=== PATIENT | male | born 1960 | race Caucasian/White ===

== ENCOUNTER 2017-10-02 05:56 | Inpatient (IN) | payer OTHER ==
[2017-10-02] VITALS (33 sets, daily range): BP systolic 53–159; BP diastolic 26–122
[~2017-10-02] VITALS: Ht 175.3 cm; Wt 130.9 kg
[2017-10-02] MEDS ORDERED: DILTIAZEM HCL 5 MG/ML 5 ML VIAL IV STA (06:13)
[2017-10-02] MEDS ORDERED: SODIUM CHLORIDE 0.9% 1000ML 1,000 ML IV ONE (06:15)
[2017-10-02] MEDS ORDERED: ASPIRIN 325 MG TAB PO ONE (06:15)
[2017-10-02] MEDS ORDERED: METOPROLOL TARTRATE INJ 1 MG/ML VIAL IV ONE ×6 (06:30→16:00)
[2017-10-02] MEDS ORDERED: ENOXAPARIN SODIUM INJ 100 MG/ML SYR SC SCH (06:45)
[2017-10-02] MEDS ORDERED: SODIUM CHLORIDE FLUSH 10 ML SYR INJ PRN (06:45)
[2017-10-02] MEDS ORDERED: ENOXAPARIN SODIUM INJ 100 MG/ML SYR SC STA (06:47)
[2017-10-02] MEDS: CEFTRIAXONE SOD 1 GM VIAL IV SCH (07:19)
[2017-10-02] MEDS ORDERED: ASPIRIN 325 MG TAB EC PO SCH (09:00)
[2017-10-02] MEDS ORDERED: SODIUM CHLORIDE 0.9% 250ML 250 ML ONE (11:05)
[2017-10-02] MEDS: LEVOFLOXACIN 750MG/D5W 150ML 150 ML IV SCH (11:25)
[2017-10-02] MEDS: METOPROLOL TARTRATE INJ 1 MG/ML VIAL IV PRN ×2 (11:25→19:24)
[2017-10-02] MEDS ORDERED: METOPROLOL TARTRATE 25 MG TAB PO SCH (13:15)
--- NOTE | 2017-10-02 14:35 | Consultation ---
DATE OF CONSULTATION: October 02, 2017 CARDIOLOGY CONSULTATION REQUESTING PHYSICIAN: Dr. Jose F Guardado. REASON FOR CONSULTATION: Atrial fibrillation with rapid ventricular response. HISTORY OF PRESENT ILLNESS: This is a 57-year-old man without significant past medical history, who presented with complaints of right-sided abdominal pain. The patient reports he was in his usual state of health until a few days prior when he developed what he described as a cold. Yesterday afternoon he developed a right-sided abdominal pain right underneath his rib cage. He did not think anything of this and proceeded to run some errands. However, this pain worsened yesterday evening such that it was 9 to 10 out of 10 in severity. He noted the pain was worse with cough, deep inspiration and lying down. The pain was associated with shortness of breath but no nausea or diaphoresis. Given worsening of the pain, he presented to the ER for further evaluation. On arrival to the ER, he was noted to have atrial fibrillation with rapid ventricular response, and chest x-ray demonstrated a medium-sized well-defined infiltrate in the right lower lobe and a small patchy infiltrate in the left lower lobe consistent with pneumonia and a leukocytosis at 15.2. He was, therefore, admitted to [facility] for further care. REVIEW OF SYSTEMS: Negative except as per HPI. PAST MEDICAL HISTORY: Obesity. PAST SURGICAL HISTORY: Phimosis. ALLERGIES: NO KNOWN DRUG ALLERGIES. MEDICATIONS: None. SOCIAL HISTORY: He smokes a pack a day since the age of 12. Occasional alcohol. No illicit drugs. FAMILY HISTORY: Pertinent for father with heart disease. PHYSICAL EXAMINATION VITAL SIGNS: Temperature 96.5 degrees, pulse 156, respiratory rate 22, blood pressure 105/66, oxygen saturation 97% on nasal cannula. GENERAL: Obese gentleman in no acute distress, well developed, well nourished. HEENT: Normocephalic, atraumatic. Pupils equal, no scleral icterus. NECK: Supple. No thyromegaly or cervical lymphadenopathy, no carotid bruits. LUNGS: Decreased breath sounds, scattered wheezes, no crackles. CARDIOVASCULAR: Tachycardic, irregularly irregular. No murmur. Normal S1 and S2. ABDOMEN: Soft, nontender. EXTREMITIES: 1+ pitting edema. Lymphedema is also present. EKG: Atrial fibrillation with rapid ventricular response. LABS: Sodium 135, potassium 4.2, chloride 99, CO2 27, BUN 14, creatinine 1. D-dimer 970. Troponin less than 0.05. WBC 15.2, hemoglobin 18.2, hematocrit 29.9, platelets 152. IMPRESSION 1. Pneumonia. 2. Atrial fibrillation with rapid ventricular response. 3. Obesity. 4. Right-sided abdominal pain, likely pleuritic in etiology. RECOMMENDATIONS: Start scheduled metoprolol tartrate for rate control. Continue IV metoprolol as necessary. Agree with anticoagulation with Lovenox. Antibiotics per primary service. Obtain TSH and echocardiogram. Thank you for this consult. We will continue to follow. Job#: [id number] EV
[2017-10-02] MEDS ORDERED: IOPAMIDOL 370 MG/ML 200 ML INFUS..BTL INJ ONE (14:48)
[2017-10-02] MEDS ORDERED: SODIUM CHLORIDE 0.9% 50ML 50 ML ONE (14:48)
[2017-10-02 14:58] LABS: CREATINE KINASE 85 IU/L (30-200)
--- NOTE | 2017-10-02 15:39 | Diagnostic Imaging Report ---
PROCEDURE: CT scan of the chest WITH intravenous contrast, using pulmonary angiogram protocol. TECHNIQUE: The chest was scanned utilizing a multidetector helical scanner from the lung apex through the level of the adrenal glands after the IV administration of 85 cc of Isovue 370. Coronal and sagittal multiplanar reformations were obtained. COMPARISON: None. INDICATIONS: ATRIAL FIBRILLATION, SHORTNESS OF BREATH FINDINGS: Lines/tubes: None. Lungs and Airways: Good contrast bolus. Large pulmonary embolus in the right lower lobe pulmonary artery. Involvement of the lateral branch of the right middle lobe pulmonary artery. (Series 2 image 57) Small emboli in the posterior branch of the left upper lobe pulmonary artery. (Series 2 image 39) Questionable other eccentric filling defects in the left lower lobe. Mild paraseptal emphysematous changes with upper lobe predominance. Diffuse groundglass opacities involving the right lower lobe. A few scattered areas of groundglass opacities in the right middle and left upper lobe. Left lower lobe atelectasis and possible aspiration/pneumonia. Calcified granuloma in the right middle lobe (series 3 image 64). Calcified granuloma in the left lower lobe (series 3 image 67). Pleura: Small right pleural effusion. Heart and mediastinum: The thyroid gland is normal. No significant mediastinal, hilar or axillary lymphadenopathy is seen. 0.8 cm subcarinal lymph node. 0.8 cm prevascular lymph node. The heart and pericardium are within normal limits. Main pulmonary artery is 2.4 cm. Ascending aorta measures 3.7 cm. Mild atherosclerotic calcifications in the aorta. Soft tissues: Normal. Abdomen: Limited contrast-enhanced views of the upper abdomen show no abnormality within the visualized liver, spleen, pancreas, or kidneys. The adrenal glands are normal. Nonspecific perinephric fat stranding bilateral kidneys. 3.1 cm cystic lesion in the superior pole of the left kidney. Bones: The visualized bony thorax is within normal limits. IMPRESSION: 1. Pulmonary embolus in bilateral lungs with large burden in the right lower lobe artery. 2. Diffuse groundglass opacities in the right lower lobe is likely related to hemorrhage/pulmonary infarct from pulmonary emboli. 3. Scattered mild nonspecific groundglass opacities in bilateral lungs. These may be infectious versus related to smaller non-visualized pulmonary emboli. Results were communicated with a patient's nurse and Dr. Kohler by Dr. Chow on 10/02/2017 at 3:37 PM. Dictated by: Alexander Chow M.D. on 10/02/2017 at 15:41 Electronically approved by: Alexander Chow M.D. on 10/02/2017 at 15:41
[2017-10-02] MEDS ORDERED: WARFARIN SOD 5 MG TAB PO SCH (17:00)
[2017-10-02 17:10] LABS: HEMATOCRIT 49.7 % (38.2-49.6); HEMOGLOBIN 16.6 g/dL (14.0-18.0)
[2017-10-02 17:12] LABS: INR 1.28
[2017-10-02 17:18] LABS: CHOL/HDL RATIO 3.6 (3.9-4.7)
[2017-10-02] MEDS: METOPROLOL TARTRATE 25 MG TAB PO SCH (17:49)
--- NOTE | 2017-10-02 17:56 | History and Physical ---
PRIMARY CARE PHYSICIAN: . CHIEF COMPLAINT: Right upper quadrant/right lower chest discomfort and severe shortness of breath. 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 Thereafter, he had seafood with oysters and froglegs, had several beers, and he returned to the ship. As he entered into bed, he had immediately jumped out of bed because of severe right upper quadrant/right lower chest discomfort. He denies any leg pain. He also started having shortness of breath, which has worsened. Denies any chest pain. Denies any history of venous thromboembolism. He does smoke 1 pack of cigarettes per day. He was taken to the urgent care facility at [facility], found to be in atrial fibrillation with rapid ventricular response, and was sent here to the ICU at [facility]. The CTA done here showed a pulmonary embolism in bilateral lungs with large burden in right lower lobe artery, also ground-glass opacities seen. Patient admitted for further evaluation and management. Currently sitting in chair, unable to lie in bed. He has oxygen in place. PAST MEDICAL HISTORY: Cigarette abuse. Chronic leg edema. PAST SURGICAL HISTORY: Phimosis surgery as a 7-year-old boy. ALLERGIES: PER THE ELECTRONIC MEDICAL RECORDS. FAMILY HISTORY: No history of venous thromboembolism. SOCIAL HISTORY: Patient works as a captain on a ship. He smokes 1 pack of cigarettes per day. Occasional alcohol. No illicits. MEDICATIONS: Per the electronic medical records. Medications reviewed. REVIEW OF SYSTEMS: Denies any dizziness or chest pain. VITAL SIGNS: Have been reviewed. PHYSICAL EXAMINATION GENERAL APPEARANCE: A tired-appearing man resting in chair with nasal cannula in place. HEENT: Anicteric. CARDIOVASCULAR: Normal S1/S2. LUNGS: He has reduced breath sounds, mildly coarse. He has more reduced breath sounds at the bases. ABDOMEN: Soft, nondistended. He has tenderness in the right upper quadrant/right lower rib region. EXTREMITIES: He has 1+ leg edema bilaterally. Calf exam is deferred. SKIN: Dry. PSYCHIATRIC: Normal affect. NEUROLOGICALLY: Alert and oriented x3. Moving all extremities. LABS: Reviewed. ASSESSMENT AND PLAN: This is a 57-year-old man. 1. Atrial fibrillation with rapid ventricular response. Start on anticoagulation. Will control his rate. Obtain a 2-D echocardiogram. Obtain TSH. Obtain lipid panel. 2. Pulmonary embolism in the bilateral lungs, large burden in the right lower lobe artery. Continue anticoagulation. Pulmonary consultation has been placed. I have encouraged the patient to quit all cigarette use. 3. Cigarette abuse. Quit cigarettes now. Will start nicotine patch. 4. Ground-glass opacities in the right lower lobe. Could be related to the pulmonary emboli versus a pulmonary infarct. We will defer to pulmonary services. 5. Leukocytosis. Could be related to marginalization in the setting of acute pulmonary emboli. Will treat him empirically with antibiotics in the meantime for coverage. 6. Obesity. BMI is 37.5. Will obtain hemoglobin A1c and screen for diabetes. Obtain lipid panel. 7. Prophylaxis. Will use Pepcid b.i.d. while he is on anticoagulation. 8. Disposition. Will reduce aspirin to 81 mg daily. Cardiac enzymes are negative. 9. Critical care time. More than 35 minutes. Job#: [id number] EV
[2017-10-02] MEDS ORDERED: WARFARIN SOD 2.5 MG TAB PO SCH (18:00)
[2017-10-02] MEDS ORDERED: DIGOXIN INJ 0.25 MG/ML 2 ML AMP ONE (19:37)
[2017-10-02] MEDS ORDERED: DIGOXIN INJ 0.25 MG/ML 2 ML AMP IV NR (20:00)
[2017-10-02] MEDS: ENOXAPARIN SODIUM INJ 100 MG/ML SYR SC SCH (20:28)
[2017-10-02] MEDS: ACETAMINOPHEN 325 MG TAB PO PRN (20:28)
[2017-10-02 22:47] LABS: CREATINE KINASE 82 IU/L (30-200)
[2017-10-03] VITALS (43 sets, daily range): BP systolic 87–131; BP diastolic 46–96
[2017-10-03] MEDS: METOPROLOL TARTRATE 25 MG TAB PO SCH ×4 (00:26→18:07)
[2017-10-03] MEDS ORDERED: DIGOXIN INJ 0.25 MG/ML 2 ML AMP IV NR (02:00)
[2017-10-03] MEDS: CEFTRIAXONE SOD 1 GM VIAL IV SCH (05:26)
[2017-10-03] MEDS: ACETAMINOPHEN 325 MG TAB PO PRN (05:27)
[2017-10-03 06:40] LABS: BASOPHILS % 0.2 % (0.0-1.0); EOSINOPHILS # (AUTO) 0.1 (0.0-0.4); EOSINOPHILS % 0.6 % (0.0-6.0); HEMATOCRIT 48.4 % (38.2-49.6); HEMOGLOBIN 16.1 g/dL (14.0-18.0); LYMPHOCYTES # (AUTO) 1.4 (1.0-3.2); LYMPHOCYTES % 8.1 % (18.0-39.1); MEAN CORPUSCULAR HGB CONC 33.3 g/dL (31-35); MEAN CORPUSCULAR VOLUME 90.1 fL (81-99); MONOCYTES # (AUTO) 1.8 (0.2-0.8); MONOCYTES % 10.7 % (4.4-11.3); NEUTROPHILS # (AUTO) 13.2 (2.1-6.9); NEUTROPHILS % 79.7 % (38.7-80.0); PLATELET COUNT 178 x10e3/uL (140-360); RED BLOOD COUNT 5.37 x10e6/uL (4.3-5.7); RED CELL DISTRIBUTION WIDTH 14.1 % (11.7-14.4)
[2017-10-03 06:56] LABS: INR 1.3; PROTHROMBIN TIME 15.2 seconds (11.9-14.5)
[2017-10-03 06:59] LABS: ANION GAP 14.1 mmol/L (8-16); BLOOD UREA NITROGEN 12 mg/dL (7-26); BUN/CREATININE RATIO 16 (6-25); CARBON DIOXIDE 23 mmol/L (22-29); CHLORIDE 97 mmol/L (98-107); CREATININE, SERUM 0.74 mg/dL (0.72-1.25); EST GLOMERULAR FILTRATION RATE > 60 ML/MIN (60-); GLUCOSE 130 mg/dL (74-118); POTASSIUM 4.1 mmol/L (3.5-5.1); SODIUM 130 mmol/L (136-145)
[2017-10-03] MEDS ORDERED: ASPIRIN 325 MG TAB EC PO SCH (09:00)
[2017-10-03] MEDS: NICOTINE 21 MG/EA PATCH TOP SCH (09:00)
[2017-10-03] MEDS: ENOXAPARIN SODIUM INJ 100 MG/ML SYR SC SCH ×2 (09:03→20:24)
[2017-10-03] MEDS: ASPIRIN 81 MG CHEW TAB PO SCH (09:03)
[2017-10-03 11:13] LABS: ANISOCYTOSIS SLIGHT; LYMPHOCYTES % (MANUAL) 7 % (19-48); MONOCYTES % (MANUAL) 13 % (3.4-9.0); NEUTROPHILS % (MANUAL) 80 % (40-74); PLATELET ESTIMATE ADEQUATE; PLATELET MORPHOLOGY COMMENT NORMAL; RBC MORPHOLOGY COMMENT NORMAL
[2017-10-03] MEDS: LEVOFLOXACIN 750MG/D5W 150ML 150 ML IV SCH (11:51)
--- NOTE | 2017-10-03 14:08 | Progress Note ---
DATE: October 03, 2017 CARDIOLOGY PROGRESS NOTE SUBJECTIVE: Patient denies shortness of breath. He continues to have right-sided chest pain. Extensive discussion was held with the patient regarding anticoagulation for the patient's newly diagnosed pulmonary emboli. Discussion included vitamin K antagonist such as Coumadin or warfarin and the need for consistent diet and frequent INR checks as well as novel oral anticoagulants which are not reversible. Extensive discussion was held with the patient regarding vitamin K antagonist and novel anticoagulants. 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 He indicates that he does not believe that he would have any problems obtaining the novel oral anticoagulation. He understands that these do not have reversal agents readily available. OBJECTIVE VITALS: Temperature 97.7 degrees, pulse 129, respiratory rate 20, blood pressure 106/70, oxygen saturation 96% on 3 L nasal cannula. GENERAL: Obese gentleman in no acute distress, awake and alert. LUNGS: Decreased breath sounds at the bases. No wheezes or crackles. CARDIOVASCULAR: Tachycardic, irregularly irregular. Normal S1 and S2. No murmur. ABDOMEN: Soft. EXTREMITIES: There is 1+ pitting edema. Lymphedema is noted. CARDIAC MEDICATIONS 1. Metoprolol tartrate 25 mg p.o. q.6 h. 2. Aspirin 81 mg p.o. daily. 3. Enoxaparin 100 mg p.o. subcutaneous q.24 h. 4. Warfarin 7.5 mg p.o. daily. LABS: WBC 16.59, hemoglobin 16.1, hematocrit 48.4, platelets 178. Sodium 130, potassium 4.1, chloride 97, CO2 23, BUN 12, creatinine 0.74. Troponin less than 0.001. Cholesterol 105, LDL 60, HDL 35, triglycerides 52. CT of the chest: Pulmonary embolus in bilateral lungs with large burden in the right lower lobe artery. Diffuse ground-glass opacities in the right lower lobe are likely related to hemorrhage/pulmonary infarct from pulmonary emboli. Scattered mild nonspecific ground-glass opacities in bilateral lungs. These may be infectious versus related to smaller, nonvisualized, pulmonary emboli. TELEMETRY: Atrial fibrillation with rapid ventricular response. IMPRESSION 1. Bilateral pulmonary emboli with large burden in the right lower lobe artery. 2. Atrial fibrillation with rapid ventricular response. 3. Acute hypoxic respiratory failure due to pulmonary emboli. 4. Pleuritic chest pain. 5. Obesity. RECOMMENDATIONS: We will titrate up metoprolol tartrate. Stop warfarin. Continue the patient on Lovenox. He will need to be discharged on Eliquis 10 mg p.o. twice a day for 1 week followed by 5 mg daily thereafter. In the meantime, continue current cardiac medications. Thank you for this consult. We will continue to follow. YVETTE GERONIMO MD Job#: [id number]
--- NOTE | 2017-10-03 14:11 | Consultation ---
DATE OF CONSULTATION: The patient is a 57-year-old male who I was consulted after the patient was found to have bilateral pulmonary emboli. The patient 2 days ago in the afternoon had some cough without phlegm, but he was in the beginning feeling right upper quadrant pain. It was moderate and became very severe. Then he decided to come to the hospital, and this was yesterday. He was having at the same time shortness of breath. No previous similar symptoms. He reports loss of 60 pounds in 1 year, but it was a voluntary decision. He denies hypertension, diabetes mellitus, hyperlipidemia, heart, lungs, GI, , eyes, ears, neurology problems. SURGERIES: Phimosis at the age of 7, no other surgery. ALLERGIES: HE IS NOT ALLERGIC TO MEDICATIONS. SOCIAL HISTORY: He has smoked since the age of 12 until the actual admission 1 pack per day. Occasional alcohol use. Denies illicit drug abuse. He works as a captain on a ship. REVIEW OF SYSTEMS: He denies fever, chills, sore throat, abdominal pain, urinary difficulty, constipation, or diarrhea. He did not have any episode of venous thromboembolism in the past. PHYSICAL EXAMINATION GENERAL: He is alert and cooperative, in no acute distress. VITALS: Heart rate 135, atrial fibrillation. Oxygen saturation 98% on 3 L of oxygen by nasal cannula. Blood pressure 102/67. HEENT: Atraumatic. NECK: No tenderness. HEART: No murmurs. LUNGS: Decreased breath sounds in the bases. ABDOMEN: Soft. There is some tenderness in the right upper quadrant. EXTREMITIES: Pedal edema 3+. Patient has morbid obesity. PSYCHIATRIC: Normal affect. NEUROLOGIC: Alert and oriented times 3. Moves all the extremities. LABS: WBC 15.2, hemoglobin 18.2, glucose 157. D-dimer 970. CPK MB 1.5. Troponin 0.005. The rest of the labs are unremarkable. CT scan of the chest disclosed bilateral pulmonary emboli. The chest x-ray disclosed bibasilar pneumonia. Electrocardiogram: Atrial fibrillation. IMPRESSION 1. Pulmonary emboli. 2. Atrial fibrillation. 3. Active smoker. 4. He has elevated hemoglobin like polycytosis. He has a high level of sugar, morbid obesity and pedal edema. In terms of treatment, the patient was started on Lovenox 100 mg q.12 subcutaneously. He is getting Rocephin 1 g q.24 h. IV. He is on Levaquin 750 IV daily. He is on a nicotine patch 21 mg daily and aspirin 81 a day. He was started with warfarin 7.5 a day. He was started also on metoprolol 25 mg q.6 h. and Tylenol 650 q.6 h. My recommendation is to continue with the Lovenox. I agree with the current regimen of antibiotics. The patient may need some treatment for his atrial fibrillation and heart evaluation including echocardiogram. I agree also with the nicotine patch. Time spent for critical care evaluation was 40 minutes. This includes interrogation, physical examination, direct observation of the different chest films. Job#: [id number]
[2017-10-03] MEDS: METOPROLOL TARTRATE INJ 1 MG/ML VIAL IV PRN (16:27)
[2017-10-03] MEDS ORDERED: WARFARIN SOD 5 MG TAB PO SCH (17:00)
[2017-10-03] MEDS ORDERED: DIGOXIN INJ 0.25 MG/ML 2 ML AMP IV ONE (18:15)
[2017-10-04] VITALS (48 sets, daily range): BP systolic 78–132; BP diastolic 46–92
--- NOTE | 2017-10-04 00:01 | Progress Note ---
DATE: October 03, 2017 TIME: 7:15 a.m. OVERNIGHT: Short of breath, unable to lie down, sitting on chair most of the night. REVIEW OF SYSTEMS: Denies any chest pain. PHYSICAL EXAMINATION: VITAL SIGNS: Reviewed. GENERAL APPEARANCE: Tired-appearing man resting in bed. HEENT: Anicteric. CARDIOVASCULAR: Normal S1 and S2. LUNGS: Reduced breath sounds at base. ABDOMEN: Soft, nondistended. Less tender in the right upper quadrant/right lower chest wall. EXTREMITIES: He has 1+ leg edema bilaterally. SKIN: Dry. PSYCHIATRIC: Flat affect. LABS: Reviewed. MEDICATIONS: Reviewed. ASSESSMENT: A 57-year-old man. 1. Atrial fibrillation with rapid ventricular response. 2. Pulmonary embolism in bilateral lungs. 3. Cigarette abuse. 4. Ground-glass opacity, right lower lobe. 5. Leukocytosis. 6. Obesity. Body mass index 37.5. 7. Hyponatremia. PLAN: 1. Continue anticoagulation. 2. Follow up 2D echocardiogram. 3. Continue nicotine patch. 4. All cultures remain negative. 5. Follow up white blood cell count. 6. Follow up labs. Critical care time more than 35 minutes. Job#: [id number]
[2017-10-04] MEDS: ACETAMINOPHEN 325 MG TAB PO PRN ×2 (00:35→09:56)
[2017-10-04] MEDS: METOPROLOL TARTRATE 25 MG TAB PO SCH ×5 (00:47→17:26)
[2017-10-04] MEDS: CEFTRIAXONE SOD 1 GM VIAL IV SCH (06:44)
[2017-10-04 08:26] LABS: BASOPHILS % 0.3 % (0.0-1.0); EOSINOPHILS # (AUTO) 0.1 (0.0-0.4); EOSINOPHILS % 0.5 % (0.0-6.0); HEMATOCRIT 46.6 % (38.2-49.6); HEMOGLOBIN 15.8 g/dL (14.0-18.0); LYMPHOCYTES # (AUTO) 1.4 (1.0-3.2); LYMPHOCYTES % 9.1 % (18.0-39.1); MEAN CORPUSCULAR HEMOGLOBIN 30.2 pg (28-32); MEAN CORPUSCULAR HGB CONC 33.9 g/dL (31-35); MEAN CORPUSCULAR VOLUME 88.9 fL (81-99); MONOCYTES % 12.6 % (4.4-11.3); NEUTROPHILS # (AUTO) 11.9 (2.1-6.9); NEUTROPHILS % 76.7 % (38.7-80.0); PLATELET COUNT 173 x10e3/uL (140-360); RED BLOOD COUNT 5.24 x10e6/uL (4.3-5.7); RED CELL DISTRIBUTION WIDTH 13.9 % (11.7-14.4)
[2017-10-04 08:48] LABS: ANION GAP 12.9 mmol/L (8-16); BLOOD UREA NITROGEN 9 mg/dL (7-26); BUN/CREATININE RATIO 12 (6-25); CALCIUM 9.2 mg/dL (8.4-10.2); CARBON DIOXIDE 25 mmol/L (22-29); CHLORIDE 96 mmol/L (98-107); CREATININE, SERUM 0.77 mg/dL (0.72-1.25); EST GLOMERULAR FILTRATION RATE > 60 ML/MIN (60-); GLUCOSE 134 mg/dL (74-118); POTASSIUM 3.9 mmol/L (3.5-5.1); SODIUM 130 mmol/L (136-145)
[2017-10-04] MEDS: NICOTINE 21 MG/EA PATCH TOP SCH (09:00)
[2017-10-04] MEDS: ENOXAPARIN SODIUM INJ 100 MG/ML SYR SC SCH ×2 (09:55→20:46)
[2017-10-04] MEDS: ASPIRIN 81 MG CHEW TAB PO SCH (09:55)
[2017-10-04] MEDS: DIGOXIN 0.25 MG TAB PO SCH (09:55)
[2017-10-04] MEDS: LEVOFLOXACIN 750MG/D5W 150ML 150 ML IV SCH (09:55)
[2017-10-04] MEDS ORDERED: VANCOMYCIN 1GM/NS 250 ML 250 ML IV ONE (10:15)
[2017-10-04 10:30] LABS: EOSINOPHILS % (MANUAL) 1 % (0-7); LYMPHOCYTES % (MANUAL) 11 % (19-48); MONOCYTES % (MANUAL) 12 % (3.4-9.0); NEUTROPHILS % (MANUAL) 76 % (40-74); PLATELET ESTIMATE ADEQUATE; PLATELET MORPHOLOGY COMMENT NORMAL; RBC MORPHOLOGY COMMENT NORMAL
--- NOTE | 2017-10-04 13:22 | Progress Note ---
DATE: October 04, 2017 CARDIOLOGY PROGRESS NOTE SUBJECTIVE: No new complaints. OBJECTIVE VITALS: Temperature 101, respiratory rate 110, respiratory rate 20, blood pressure 88/62 up to 117/67, O2 sat 92% on room air. GENERAL: No acute distress. Alert. CHEST: Clear to auscultation. CARDIOVASCULAR: Irregularly irregular rate and rhythm. Normal S1 and S2. ABDOMEN: Soft. EXTREMITIES: One plus edema in bilateral lower extremities. CARDIOVASCULAR MEDICATIONS 1. Digoxin 0.25 mg daily. 2. Aspirin 81 mg daily. 3. Lovenox 100 subcutaneous q.12 h. 4. Metoprolol tartrate 50 mg q.6 h. p.o. 5. Nicotine patch in place. White blood cells 15.5, hemoglobin 15.8 and platelets 173,000. INR 1.3, creatinine 0.7, sodium 130, potassium 3.9, chloride 96, bicarbonate 25, glucose 134, calcium 9.2. ASSESSMENT 1. Large right pulmonary embolism. 2. Fever. 3. Atrial fibrillation with episodes of rapid ventricular response. 4. Preserved left ventricular systolic function: Mild concentric hypertrophy on echocardiogram. 5. Status post acute hypoxic respiratory failure in the setting of pulmonary embolism. 6. Pleuritic type chest pain. 7. Morbid obesity and lower extremity edema. RECOMMENDATIONS: Upon discharge, plan on Eliquis 10 mg twice a day for 1 week followed by 5 mg every 12 hours thereafter. Continue current cardiovascular medications. Rate control improving. Continue workup. Defer to primary service. Job#: [id number] VT
--- NOTE | 2017-10-04 13:50 | Progress Note ---
DATE: PULMONARY PROGRESS NOTE SUBJECTIVE: Reporting the progress note of the lung consultation. Patient, a 57-year-old male, was admitted due to pulmonary emboli, and he was started on Lovenox. Currently feeling better. Less abdominal pains. Breathing fine. No new complaints. OBJECTIVE VITAL SIGNS: In terms of the vitals, he is very stable. HEENT: Atraumatic. NECK: No tenderness. LUNGS: Decreased breath sounds in the bases. HEART: No murmurs. ABDOMEN: Soft. No organomegaly. EXTREMITIES: Pedal edema. IMPRESSION 1. Atrial fibrillation. 2. Pulmonary embolism. 3. History of smoking. 4. Obesity. 5. Pedal edema. Recommendation to continue with the Lovenox 100 mg q.12 subcutaneously. Besides that, he is on Rocephin and Levophed IV. Rocephin 1 g q.24 h., Levophed 750 daily. He is on aspirin 81 a day and different pain medications. Recommendation to continue with the current treatment. Probably in 1 or 2 days will start with oral anticoagulants. According to the nurse, one of the consultants reported that after the Lovenox has been stopped the patient will be discharged on Eliquis. Job#: [id number] EV
[2017-10-05] VITALS (49 sets, daily range): BP systolic 84–130; BP diastolic 33–89
[2017-10-05] MEDS: METOPROLOL TARTRATE 25 MG TAB PO SCH ×5 (00:02→23:58)
[2017-10-05] MEDS: CEFTRIAXONE SOD 1 GM VIAL IV SCH (06:30)
[2017-10-05] MEDS: NICOTINE 21 MG/EA PATCH TOP SCH (07:44)
[2017-10-05] MEDS: ASPIRIN 81 MG CHEW TAB PO SCH (08:48)
[2017-10-05] MEDS: DIGOXIN 0.25 MG TAB PO SCH (08:49)
[2017-10-05] MEDS: ENOXAPARIN SODIUM INJ 100 MG/ML SYR SC SCH ×2 (08:49→20:58)
[2017-10-05 08:50] LABS: BASOPHILS % 0.3 % (0.0-1.0); EOSINOPHILS # (AUTO) 0.1 (0.0-0.4); EOSINOPHILS % 0.8 % (0.0-6.0); HEMATOCRIT 40.8 % (38.2-49.6); HEMOGLOBIN 13.9 g/dL (14.0-18.0); LYMPHOCYTES # (AUTO) 1.5 (1.0-3.2); LYMPHOCYTES % 10.4 % (18.0-39.1); MEAN CORPUSCULAR HEMOGLOBIN 30.2 pg (28-32); MEAN CORPUSCULAR HGB CONC 34.1 g/dL (31-35); MEAN CORPUSCULAR VOLUME 88.5 fL (81-99); MONOCYTES # (AUTO) 1.8 (0.2-0.8); MONOCYTES % 12.5 % (4.4-11.3); NEUTROPHILS # (AUTO) 10.9 (2.1-6.9); NEUTROPHILS % 75.2 % (38.7-80.0); PLATELET COUNT 194 x10e3/uL (140-360); RED BLOOD COUNT 4.61 x10e6/uL (4.3-5.7); RED CELL DISTRIBUTION WIDTH 13.9 % (11.7-14.4)
[2017-10-05 09:10] LABS: ANION GAP 11.7 mmol/L (8-16); BLOOD UREA NITROGEN 10 mg/dL (7-26); BUN/CREATININE RATIO 14 (6-25); CARBON DIOXIDE 25 mmol/L (22-29); CHLORIDE 95 mmol/L (98-107); CREATININE, SERUM 0.72 mg/dL (0.72-1.25); EST GLOMERULAR FILTRATION RATE > 60 ML/MIN (60-); GLUCOSE 118 mg/dL (74-118); POTASSIUM 3.7 mmol/L (3.5-5.1); SODIUM 128 mmol/L (136-145)
[2017-10-05] MEDS ORDERED: VANCOMYCIN 1GM/NS 250 ML 250 ML IV ONE (10:15)
[2017-10-05] MEDS ORDERED: POTASSIUM CHLORIDE 20 MEQ TAB CR PO STA (11:23)
[2017-10-05] MEDS ORDERED: FUROSEMIDE INJ 10 MG/ML 4 ML VIAL IV ONE (11:30)
[2017-10-05 11:32] LABS: LYMPHOCYTES % (MANUAL) 7 % (19-48); MONOCYTES % (MANUAL) 12 % (3.4-9.0); NEUTROPHILS % (MANUAL) 81 % (40-74)
[2017-10-05 11:33] LABS: PLATELET ESTIMATE ADEQUATE; PLATELET MORPHOLOGY COMMENT NORMAL; RBC MORPHOLOGY COMMENT NORMAL
[2017-10-05] MEDS: LEVOFLOXACIN 750MG/D5W 150ML 150 ML IV SCH (11:50)
--- NOTE | 2017-10-05 12:48 | Progress Note ---
DATE: October 05, 2017 PULMONARY MEDICINE PROGRESS NOTE This is coverage for Dr. Yousuf Iniguez. SUBJECTIVE: Mr. Villanueva was seen and examined at bedside. His arrhythmia broke, and he has had no problems since 4 p.m. yesterday. Heart rate is now in control at about 82 beats per minute. No hypotension. No worsened shortness of breath. He is tolerating the blood thinners for now. Echo was done with 50% to 55% LVEF with trial pericardial effusion, difficulty estimating right ventricular systolic pressure. Ultrasound mentioned no DVT present. REVIEW OF SYSTEMS: No headaches, no bleeding. OBJECTIVE VITAL SIGNS: Afebrile. Vital signs noted per electronic record. GENERALLY: No acute distress, alert and calm. HEENT: Normocephalic, atraumatic. NECK: Supple. Throat midline. LUNGS: Bilateral air entry, a few rhonchi. CARDIOVASCULAR: S1 and S2. No murmurs, rubs or gallops. ABDOMINAL: Soft, nontender. EXTREMITIES: No clubbing, no cyanosis. There is the nonspecific lower extremity pitting edema. INTEGUMENT: No rash. No purpura. LABS: BUN 10, creatinine 0.7. Potassium 3.7. White count 15, hematocrit 41, platelets 194. IMPRESSION AND PLAN 1. Bilateral pulmonary emboli. 2. Atrial fibrillation with rapid ventricular rate, now controlled. 3. Hyponatremia at baseline. 4. Bilateral lung infiltrates, right much greater than left. Possible pulmonary infarct versus other infection. 5. Febrile syndrome, not otherwise specified. Continue Lovenox for DVT. Will change out to other anticoagulant at discharge. Continue nicotine patch for now. Have notified him this could lead to some clots and higher chance of having an emboli. Patient will be continued on empirical antibiotics in the meanwhile. Will follow along closely. Oxygen empirically to be given for possible pulmonary hypertension. Try a dose of Lasix and potassium and follow up this so as to ensure it does not drop. Will follow along closely. Job#: [id number] EV
--- NOTE | 2017-10-05 14:36 | Progress Note ---
DATE: October 05, 2017 CARDIOLOGY PROGRESS NOTE SUBJECTIVE: No new complaints. Frustrated about staying in the hospital. Wants to ambulate more. OBJECTIVE VITALS: Temperature 98.7, heart rate 84, respiratory rate 12, blood pressure 116/59, O2 sat 95% on room air. In sinus rhythm on telemetry. GENERAL: No acute distress. CHEST: Decreased breath sounds in bilateral bases. CARDIOVASCULAR: Regular rate and rhythm. Normal S1 and S2. No S3. No S4. No murmurs or rubs. ABDOMEN: Soft. EXTREMITIES: Edema 1+ bilateral lower extremities with hyperpigmented changes to lower extremities. CARDIOVASCULAR MEDICATIONS 1. Metoprolol tartrate 50 mg q.6 h. 2. Digoxin 0.25 mg daily. 3. Lovenox 100 mg subcutaneously q.12 h. 4. Aspirin 81 mg daily. STUDIES: White blood cells 14.5, hemoglobin 13.9 and platelets 194,000. Sodium 128, potassium 3.7, chloride 95, bicarbonate 25, BUN 10, creatinine 0.72, glucose 118. Calcium 9. ASSESSMENT 1. Hyponatremia. 2. Bilateral pulmonary embolism. 3. Atrial fibrillation with episodes of ventricular response, now well controlled. 4. Lung infiltrates, possibly pulmonary infarct versus infection. 5. Fever. 6. Morbid obesity. 7. Preserved left ventricle systolic function with mild concentric hypertrophy on echocardiogram. 8. Pleuritic type chest pain. 9. Bilateral lower extremity edema. RECOMMENDATIONS: Ultrasound of bilateral lower extremity reviewed. No evidence of deep venous thrombosis. Continue current cardiovascular medications. Okay to ambulate with assistance. Transition upon discharge to Eliquis 10 mg q.12 h. for 1 week followed by 5 mg every 12 hours thereafter. Undergoing antibiotic therapy. Job#: [id number] AL
[2017-10-05] MEDS: SODIUM CHLORIDE 1 GM TAB PO SCH (20:58)
--- NOTE | 2017-10-05 20:59 | Progress Note ---
DATE: October 05, 2017 TIME: 7:09 p.m. OVERNIGHT: No events. Feeling better. REVIEW OF SYSTEMS: Denies any dizziness. PHYSICAL EXAMINATION: VITAL SIGNS: Reviewed. GENERAL APPEARANCE: Tired-appearing man resting in bed. HEENT: Anicteric. CARDIOVASCULAR: Normal S1 and S2. LUNGS: Good chest wall expansion. ABDOMEN: Soft, nontender. EXTREMITIES: Trace edema. SKIN: Dry. PSYCHIATRIC: Normal affect. LABS: Reviewed. MEDICATIONS: Reviewed. ASSESSMENT: A 57-year-old man. 1. Atrial fibrillation with rapid ventricular response. 2. Pulmonary embolism in bilateral lungs. 3. Cigarette abuse. 4. Ground-glass opacity, right lung. 5. Leukocytosis. 6. Obesity. Body mass index 37.5. 7. Hyponatremia. PLAN: 1. Continue anticoagulants. 2. Plan for factor X inhibitor on discharge. 3. Continue rate control. 4. Leukocytosis has been improving. 5. Hyponatremia. Will give salt tablets and reassess. 6. Continue digoxin and beta denzel. 7. Continue nicotine patch. 8. Discharge planning. Critical care time more than 35 minutes. Will transfer to the medical floor. Job#: [id number]
[2017-10-06] VITALS (30 sets, daily range): BP systolic 77–138; BP diastolic 34–124
[2017-10-06] MEDS: METOPROLOL TARTRATE 25 MG TAB PO SCH ×4 (05:28→14:39)
[2017-10-06] MEDS: CEFTRIAXONE SOD 1 GM VIAL IV SCH (05:28)
[2017-10-06 05:56] LABS: BASOPHILS # (AUTO) 0.1 (0.0-0.1); BASOPHILS % 0.4 % (0.0-1.0); EOSINOPHILS # (AUTO) 0.3 (0.0-0.4); EOSINOPHILS % 1.7 % (0.0-6.0); HEMATOCRIT 42.1 % (38.2-49.6); HEMOGLOBIN 14.1 g/dL (14.0-18.0); LYMPHOCYTES # (AUTO) 1.7 (1.0-3.2); LYMPHOCYTES % 11.8 % (18.0-39.1); MEAN CORPUSCULAR HEMOGLOBIN 29.7 pg (28-32); MEAN CORPUSCULAR HGB CONC 33.5 g/dL (31-35); MEAN CORPUSCULAR VOLUME 88.8 fL (81-99); MONOCYTES # (AUTO) 1.9 (0.2-0.8); MONOCYTES % 13.2 % (4.4-11.3); NEUTROPHILS # (AUTO) 10.4 (2.1-6.9); PLATELET COUNT 221 x10e3/uL (140-360); RED BLOOD COUNT 4.74 x10e6/uL (4.3-5.7); RED CELL DISTRIBUTION WIDTH 13.9 % (11.7-14.4)
[2017-10-06 06:25] LABS: ALANINE AMINOTRANSFERASE 32 IU/L (0-55); ALBUMIN 2.3 g/dL (3.5-5.0); ALBUMIN/GLOBULIN RATIO 0.5 (0.8-2.0); ALKALINE PHOSPHATASE 72 IU/L (40-150); ANION GAP 13.7 mmol/L (8-16); BLOOD UREA NITROGEN 12 mg/dL (7-26); BUN/CREATININE RATIO 16 (6-25); CALCIUM 9.4 mg/dL (8.4-10.2); CARBON DIOXIDE 27 mmol/L (22-29); CHLORIDE 92 mmol/L (98-107); CREATININE, SERUM 0.77 mg/dL (0.72-1.25); EST GLOMERULAR FILTRATION RATE > 60 ML/MIN (60-); GLUCOSE 106 mg/dL (74-118); MAGNESIUM 1.6 MG/DL (1.3-2.1); POTASSIUM 3.7 mmol/L (3.5-5.1); SODIUM 129 mmol/L (136-145)
[2017-10-06] MEDS ORDERED: ASPIRIN CHEW81 MG PO (06:29)
[2017-10-06] MEDS ORDERED: LANOXIN250 MCG PO (06:29)
[2017-10-06] MEDS ORDERED: LOPRESSOR25 MG PO (06:29)
[2017-10-06] MEDS ORDERED: SODIUM CHLORIDE1 GM PO (06:29)
[2017-10-06] MEDS ORDERED: NICODERM CQ1 EAC2 TOP (06:29)
[2017-10-06 07:41] LABS: EOSINOPHILS % (MANUAL) 1 % (0-7); LYMPHOCYTES % (MANUAL) 10 % (19-48); MONOCYTES % (MANUAL) 11 % (3.4-9.0); NEUTROPHILS % (MANUAL) 78 % (40-74); PLATELET ESTIMATE ADEQUATE; PLATELET MORPHOLOGY COMMENT NORMAL; RBC MORPHOLOGY COMMENT NORMAL
--- NOTE | 2017-10-06 07:43 | Discharge Summary ---
PRINCIPAL DIAGNOSES 1. Atrial fibrillation with rapid ventricular response. 2. Pulmonary embolism in bilateral lungs. 3. Cigarette abuse. 4. Obesity. Body mass index 37.5. 5. Hyponatremia. SECONDARY DIAGNOSIS: Cigarette abuse. CHIEF COMPLAINT: Shortness of breath. HISTORY: A 57-year-old man with shortness of breath. Refer to the H and P for further details. HOSPITAL COURSE: The patient was found to have atrial fibrillation with rapid ventricular response. Received beta denzel and digoxin, and other medications. He had pulmonary embolism in bilateral lungs. He received Lovenox, and was being transitioned to Eliquis upon discharge. Cigarette abuse and counseled on cessation. Started on nicotine patch. He had obesity with BMI 37.5. Screening was negative for diabetes. Hyponatremia and received salt tablets. Will be discharged on salt tablets. DISCHARGE MEDICATIONS: Per electronic medical record and include Eliquis 10 mg q.12 h. for 7 days, and then transition to 5 mg q.12 h. FOLLOWUP 1. Primary care doctor in 1 week. 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 CONDITION ON DISCHARGE: Stable and improving. DISCHARGE LOCATION: Home. The patient is fit for duty after 7 days of rest. RYAN LUND MD Job#: [id number] [place]
[2017-10-06] MEDS: ASPIRIN 81 MG CHEW TAB PO SCH (08:53)
[2017-10-06] MEDS: LEVOFLOXACIN 750MG/D5W 150ML 150 ML IV SCH (08:54)
[2017-10-06] MEDS: SODIUM CHLORIDE 1 GM TAB PO SCH ×2 (08:54→14:37)
[2017-10-06] MEDS: DIGOXIN 0.25 MG TAB PO SCH (08:54)
[2017-10-06] MEDS: ENOXAPARIN SODIUM INJ 100 MG/ML SYR SC SCH (08:54)
[2017-10-06] MEDS: NICOTINE 21 MG/EA PATCH TOP SCH (08:54)
--- NOTE | 2017-10-06 12:54 | Progress Note ---
DATE: PULMONARY PROGRESS NOTE SUBJECTIVE: The patient is a 57-year-old man who was admitted due to pulmonary emboli. Today, no new complaints. He has been in atrial fibrillation, currently in sinus rhythm. He has been in hypotension. Currently, the levels are more normal. The blood pressure is 111/63. Pulse is 93. Oxygen saturation 95%. Respiratory rate is 18. As reported, he is feeling much better. OBJECTIVE HEENT: Atraumatic. NECK: No tenderness. LUNGS: Pretty clean. ABDOMEN: Soft. No organomegaly. EXTREMITIES: Pedal edema. LABS: WBC 14.44, sodium 129, albumin 2.3. The rest of the labs are unremarkable. IMPRESSION 1. Pulmonary emboli. 2. Off and on atrial fibrillation. 3. History of smoking. 4. Obesity. 5. Pedal edema. RECOMMENDATION: If this patient is stable, he can be released. He can continue with Eliquis 10 mg q.12 h. up to 2 weeks and then 5 mg q.12 h. Job#: [id number]
--- NOTE | 2017-10-06 12:59 | Progress Note ---
DATE: October 04, 2017 TIME: 7:00 a.m. OVERNIGHT: No events. REVIEW OF SYSTEMS: Denies any dizziness. PHYSICAL EXAMINATION: VITAL SIGNS: Reviewed. GENERAL APPEARANCE: Tired-appearing man resting in bed. HEENT: Anicteric. CARDIOVASCULAR: Normal S1 and S2. LUNGS: Moderate breath sounds. ABDOMEN: Soft, nontender, nondistended. EXTREMITIES: Trace edema. SKIN: Dry. PSYCHIATRIC: Normal affect. LABS: Reviewed. MEDICATIONS: Reviewed. ASSESSMENT: A 57-year-old man. 1. Atrial fibrillation with rapid ventricular response. 2. Pulmonary embolism in bilateral lungs. 3. Cigarette abuse. 4. Ground-glass opacity, right lung. 5. Leukocytosis. 6. Obesity. 7. Hyponatremia. PLAN: 1. Continue anticoagulant. 2. Plan for factor X inhibitor on discharge. 3. Follow up 2D echo. 4. Continue nicotine patch. 5. Continue oxygen support. Critical care time more than 35 minutes. Job#: [id number]
--- NOTE | 2017-10-06 13:12 | Progress Note ---
DATE: October 06, 2017 CARDIOLOGY PROGRESS NOTE SUBJECTIVE: The patient denies chest pain or shortness of breath. His pleuritic chest pain has resolved. OBJECTIVE VITAL SIGNS: Temperature 98.8 degrees. Pulse 116. Respiratory rate 16. Blood pressure 111/60. Oxygen saturation 92% on room air. GENERAL: Awake, alert, no acute distress. Obese. LUNGS: Clear to auscultation bilaterally. No wheezes, rales, or crackles. CARDIOVASCULAR: Tachycardic. Irregularly irregular. Normal S1, S2. No murmur. ABDOMEN: Soft. EXTREMITIES: 1+ edema bilateral. Hyperpigmented changes to lower extremities and lymphedema. CARDIAC MEDICATIONS 1. Metoprolol tartrate 50 mg p.o. q.6 hours. 2. Digoxin 0.25 mg p.o. daily. 3. Enoxaparin 100 mg subcu q.12 hours. 4. Aspirin 81 mg p.o. daily. LABS: WBC 14.44, hemoglobin 14.1, hematocrit 42.1, platelets 221, sodium 129, potassium 3.7, chloride 92, CO2 27, BUN 12, creatinine 0.77. Telemetry: AFib with RVR. IMPRESSION 1. Hyponatremia. 2. Bilateral pulmonary embolism with large burden in the right lower lobe artery. 3. Atrial fibrillation with rapid ventricular response. 4. Acute hypoxic respiratory failure due to pulmonary emboli. 5. Pleuritic chest pain, resolved. 6. Obesity. 7. Lung infiltrate, possibly pulmonary infarct versus infection. Preserved left ventricular systolic function with mild left ventricular hypertrophy on echocardiogram. 8. Continue current cardiac medication. Patient's rate is not well controlled today. We will request the patient ambulate. If his heart rate is not well controlled with ambulation, he will need addition of calcium channel blockers for further rate control. If this is not successful, may need TE cardioversion. Continue anticoagulation. Plan to transition to Eliquis 10 mg p.o. q.12 hours followed by 5 mg p.o. q.12 hours thereafter. Further evaluation of hyponatremia per primary service. 9. Thank you for this consult. We will continue to follow. Job#: [id number] JENELLE
== END 2017-10-06 15:35 | disposition home or self-care (01) | DRG 175 ==
LOC: FSED 05:56 → EEVIPCON 08:24 → ICU 08:24
PROVIDERS: ADMIT Internal Medicine; ATTEND Internal Medicine
DX: I26.99 Other pulmonary embolism without acute cor pulmonale (principal); J96.01 Acute respiratory failure with hypoxia; Z68.41 Body mass index [BMI] 40.0-44.9, adult; E87.1 Hypo-osmolality and hyponatremia; E66.01 Morbid (severe) obesity due to excess calories; F17.210 Nicotine dependence, cigarettes, uncomplicated; I48.0 Paroxysmal atrial fibrillation; I27.20 Pulmonary hypertension, unspecified; R60.0 Localized edema
CPT/HCPCS: 36415; 71045; 71260; 80048; 80053; 80061; 82550; 82553; 83036; 83735; 84443; 84484; 85014; 85018; 85025; 85379; 85610; 87040; 93005; 93306; 93970; 96367; 96372; 96374; 96375; 96376; 99284; J0696; J1160; J1650; J1940; J3370; J7030; J7050; Q9967